=== PATIENT | female | born 1955 | race Caucasian/White ===

== ENCOUNTER → 2016-12-14 | Outpatient (CLI) | payer BC ==
--- NOTE | 2016-12-14 10:56 | MM ---
Reason for exam: follow-up at short interval from prior study. Last mammogram was performed 6 months ago. History: Patient is postmenopausal. Family history of premenopausal breast cancer in sister at age 36, breast cancer in paternal aunt at age 54, and breast cancer in maternal grandmother at age 60. Benign excisional biopsy of the left breast, 1981. Took estrogen for 21 years. Took progesterone for 21 years. Physical Findings: Nurse did not find any significant physical abnormalities on exam. MG Diagnostic Mammo w CAD [place] Bilateral CC and MLO view(s) were taken. Prior study comparison: June 04, 2016, bilateral MG 3d diag mammo w/cad [place]. November 06, 2014, bilateral MG screening mammo w CAD. The breast tissue is heterogeneously dense. This may lower the sensitivity of mammography. No suspicious calcifications are seen. There is chronic nodularity bilaterally. These results were verbally communicated with the patient and result sheet given to the patient on 12/14/16. ASSESSMENT: Incomplete: need additional imaging evaluation, BI-RAD 0 RECOMMENDATION: Ultrasound of both breasts. Manage patient on a clinical basis.
--- NOTE | 2016-12-14 10:57 | USB ---
Reason for exam: additional evaluation requested from abnormal screening. History: Patient is postmenopausal. Family history of premenopausal breast cancer in sister at age 36, breast cancer in paternal aunt at age 54, and breast cancer in maternal grandmother at age 60. Benign excisional biopsy of the left breast, 1981. Took estrogen for 21 years. Took progesterone for 21 years. US Breast BILAT Right breast ultrasound including all four quadrants, the retroareolar region and axilla demonstrates no cystic or solid lesion seen. Left breast ultrasound including all four quadrants, the retroareolar region and axilla demonstrates no cystic or solid lesion seen. These results were verbally communicated with the patient and result sheet given to the patient on 12/14/16. ASSESSMENT: Negative, BI-RAD 1 RECOMMENDATION: Routine screening mammogram of both breasts in 1 year.
== END ==
LOC: RADUSWWP 09:18
PROVIDERS: ATTEND Family Medicine
DX: R92.8 Other abnormal and inconclusive findings on diagnostic imaging of breast (principal)
CPT/HCPCS: 76641; G0204

== ENCOUNTER → 2017-02-09 | Outpatient (CLI) | payer BC ==
--- NOTE | 2017-02-09 17:32 | CT ---
EXAMINATION TYPE: CT angio chest DATE OF EXAM: 02/09/2017 5:24 PM COMPARISON: Chest CT October 17, 2014. HISTORY: Chest pressure with shortness of breath for 2-[address] DLP: 630 mGycm. Automated Exposure Control for Dose Reduction was Utilized. CONTRAST: CTA scan of the thorax is performed with IV Contrast, patient injected with 100 mL of Omnipaque 350, pulmonary embolism protocol. MIP Images are created on CT scanner and reviewed. FINDINGS: LUNGS: Central groundglass opacity is present bilaterally. No suspicious new parenchymal nodule or ma ss is clearly seen. There is stable 4 mm groundglass nodule laterally right midlung on axial image 76 subpleural level. No pleural effusion or pneumothorax is seen bilaterally. Tracheobronchial tree is patent. MEDIASTINUM: There is satisfactory enhancement of the pulmonary artery and its branches, there is no CT evidence for pulmonary embolism. There are no greater than 1 cm hilar or mediastinal lymph nodes. No cardiomegaly or pericardial effusion is seen. Mild to moderate left atrial dilatation is seen. There is moderate concentric left ventricular hypertrophy noted mild to moderate mixed plaque in the descending thoracic and upper abdominal aorta is noted. OTHER: Heterogeneously dense fibroglandular tissue scattered throughout both breasts is again seen. L iver is diffusely low dense consistent with fatty infiltration. Some mild multilevel spurring in the thoracic spine is seen. There are persistent multilevel hemivertebra with scoliotic curvature centere d in the upper to midthoracic spine. IMPRESSION: 1. No CT evidence for pulmonary embolism. 2. Perhaps mild central alveolar edema, consider fluid overload state. No suspicious focal consolidat ion or pneumonia.
== END | disposition home or self-care (01) ==
LOC: RADCTMAIN 16:56
PROVIDERS: ATTEND Internal Medicine Cardiovascular Disease
DX: R06.02 Shortness of breath (principal)
CPT/HCPCS: 71275; Q9967

== ENCOUNTER 2017-02-22 17:00 | Emergency (ER) | payer BC ==
[2017-02-22 17:29] VITALS: BP 183/74; PULSE 107; RESP 18; TEMP 97.8
[2017-02-22] MEDS ORDERED: ORPHENADRINE 30 MG/ML 2 ML VIAL IM STA (18:04)
[2017-02-22] MEDS ORDERED: MORPHINE SULFATE 4 MG/ML SYRINGE IM STA (18:04)
--- NOTE | 2017-02-22 18:09 | ED ---
Neck Injury/Pain HPI - General Chief Complaint: Neck Pain/Injury Stated Complaint: pain left arm Time Seen by Provider: 02/22/17 17:54 Source: patient, RN notes reviewed Mode of arrival: ambulatory Limitations: no limitations - History of Present Illness Initial Comments: Is a 61-year-old female presents emergency Department chief complaint muscle spasms left side of her neck, shoulder and arm region. She states that it's parents basilar last few days. She states that she did go the clinic and was told to increase her Flexeril to 3 times a day she has been tenderness with no relief. Patient EKG which was normal. Patient states she has no chest pain or shortness breath she states she just has severe pain around her left scapula. She states when she moves it causes excruciating pain or she lays down on her left shoulder. She states that she has no pain and rates into her arm. Patient denies any dizziness, blurred vision or any focal weakness. Patient states that is causing some headache because of pain is in the left side of her neck at the base of her skull. Patient states she has had problems like this in the past. She did try to get up with Dr. Elise's office but did not have an appointment until March 12. States that she took half her Hinkle last night with minimal relief. - Related Data Home Medications Medication Instructions Recorded Confirmed Aspirin 162 mg PO HS 06/24/15 02/22/17 Atorvastatin [Lipitor] 80 mg PO HS 06/24/15 02/22/17 Cyclobenzaprine [Flexeril] 10 mg PO BID PRN 06/24/15 02/22/17 Isosorbide Mononitrate ER [Imdur] 60 mg PO HS 06/24/15 02/22/17 Metoprolol Tartrate [Lopressor] 25 mg PO BID 06/24/15 02/22/17 Temazepam [Restoril] 30 mg PO HS 06/24/15 02/22/17 Ergocalciferol [Vitamin D2 50,000 unit PO TAVERAS 01/15/16 02/22/17 (DRISDOL)] Ibuprofen [Motrin] 400 mg PO Q6HR PRN 02/22/17 02/22/17 amLODIPine [Norvasc] 10 mg PO DAILY 02/22/17 02/22/17 Previous Rx's Medication Instructions Recorded Lisinopril [Zestril] 10 mg PO DAILY #30 tab 01/16/16 HYDROcodone/APAP 7.5-325MG [Hinkle 1 tab PO Q6HR PRN #20 tab 02/22/17 7.5-325] Orphenadrine [Norflex] 100 mg PO Q12H #14 tablet.er 02/22/17 Allergies Allergy/AdvReac Type Severity Reaction Status Date / Time acetaminophen [From Vicodin] Allergy Hallucinati Verified 02/22/17 17:57 ons diazepam [From Valium] Allergy Hallucinati Verified 02/22/17 17:57 ons erythromycin base Allergy Nausea Verified 02/22/17 17:57 hydrocodone bitartrate Allergy Hallucinati Verified 02/22/17 17:57 [From Vicodin] ons zolpidem tartrate Allergy Hallucinati Verified 02/22/17 17:57 [From Ambien] ons Review of Systems ROS Statement: Those systems with pertinent positive or pertinent negative responses have been documented in the HPI. ROS Other: All systems not noted in ROS Statement are negative. Past Medical History Past Medical History: Chest Pain / Angina, COPD, Hyperlipidemia, Hypertension, Myocardial Infarction ([place]), Osteoarthritis (OA) Additional Past Medical History / Comment(s): X2 PA'S LAST ONE IN 2014, OSTEOPOROSIS, PT STATED HAD THYROID STORM MANY YEARS AGO WAS TAKING MEDS THEND STOPPED THE MEDS ON HER OWN 12 YERAS AGO AND NO PROBLEM SINCE. 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 Smoking Status: Former smoker Past Alcohol Use History: None Reported Additional Past Alcohol Use History / Comment(s): PT STATED SHE SMOKED FOR 42 YEARS 1.5 PPD, QUIT -2015 Past Drug Use History: None Reported - Past Family History Father Family Medical History: Myocardial Infarction ([place]) Additional Family Medical History / Comment(s): PACEMAKER Mother Family Medical History: Congestive Heart Failure (CHF), Myocardial Infarction ( [place]) Sister(s) Family Medical History: Coronary Artery Disease (CAD) Additional Family Medical History / Comment(s): HAD CABG AT AGE 60 Brother(s) Family Medical History: Coronary Artery Disease (CAD), Myocardial Infarction ([place] ) Additional Family Medical History / Comment(s): 1 BROTHER HAD 3 PA'S /PACEMKAER AT AGE 29, 1 BROTHER HAD CABG AT AGE 66 AND 2 BROTHERS IN THEIR EARLY 50'S FROM PA'S General Exam General appearance: alert, in no apparent distress Head exam: Present: atraumatic, normocephalic, normal inspection Eye exam: Present: normal appearance, PERRL, EOMI. Absent: scleral icterus, conjunctival injection, periorbital swelling ENT exam: Present: normal exam, normal oropharynx, mucous membranes moist, TM's normal bilaterally Neck exam: Present: tenderness (Moderate tenderness of the left trapezius scapular region and the left paraspinal at testing side of the left trapezius), full ROM. Absent: meningismus, lymphadenopathy Respiratory exam: Present: normal lung sounds bilaterally. Absent: respiratory distress, wheezes, rales, rhonchi, stridor Cardiovascular Exam: Present: regular rate, normal rhythm, normal heart sounds. Absent: systolic murmur, diastolic murmur, rubs, gallop, clicks Neurological exam: Present: alert, oriented X3, CN II-XII intact, reflexes normal. Absent: motor sensory deficit Skin exam: Present: warm, dry, intact, normal color. Absent: rash Course Vital Signs 02/22/17 17:25 Temperature 97.8 F Pulse Rate 107 H Respiratory 18 Rate Blood Pressure 183/74 O2 Sat by Pulse 95 Oximetry Medical Decision Making - Medical Decision Making 61-year-old female presented emergency department for left shoulder and neck region pain. Patient has obvious muscle spasms and tenderness with palpation. This is muscle skeletal nature. Patient is currently taking Flexeril no relief. Patient we given pain medication, change in her muscle relaxants Norflex. Return parameters were discussed. Disposition Clinical Impression: Trapezius muscle spasm Disposition: HOME SELF-CARE Condition: Stable Instructions: Muscle Spasm (ED) Additional Instructions: Please return to the Emergency Department if symptoms worsen or any other concerns. Prescriptions: HYDROcodone/APAP 7.5-325MG [Hinkle 7.5-325] 1 tab PO Q6HR PRN #20 tab PRN Reason: Pain Orphenadrine [Norflex] 100 mg PO Q12H #14 tablet.er Time of Disposition: 18:08
== END 2017-02-22 18:32 | disposition home or self-care (01) ==
LOC: EC 17:00
DX: M62.838 Other muscle spasm (principal); M19.90 Unspecified osteoarthritis, unspecified site; E78.5 Hyperlipidemia, unspecified; I10 Essential (primary) hypertension; Z88.1 Allergy status to other antibiotic agents; Z88.5 Allergy status to narcotic agent; Z88.8 Allergy status to other drugs, medicaments and biological substances; Z87.891 Personal history of nicotine dependence; Z79.82 Long term (current) use of aspirin; Z79.899 Other long term (current) drug therapy
CPT/HCPCS: 99283; 96372 ×2; J2270; J2360

== ENCOUNTER → 2019-03-01 | Outpatient (CLI) | payer OTHER ==
--- NOTE | 2019-03-01 08:06 | US ---
EXAMINATION TYPE: US venous doppler duplex LE LT DATE OF EXAM: 03/01/2019 7:34 AM COMPARISON: NONE CLINICAL HISTORY: R60.0 edema of L lower extremity. Pain and edema left foot for 1 week SIDE PERFORMED: left TECHNIQUE: The lower extremity deep venous system is examined utilizing real time linear array sonog markel with graded compression, doppler sonography and color-flow sonography. VESSELS IMAGED: External Iliac Vein (EIV) Common Femoral Vein Deep Femoral Vein Greater Saphenous Vein * Femoral Vein Popliteal Vein Small Saphenous Vein * Proximal Calf Veins (* superficial vessels) There is normal flow, compressibility, vascular waveforms. Left Leg: No evidence of DVT as visualized IMPRESSION:
--- NOTE | 2019-03-01 08:19 | CT ---
EXAMINATION TYPE: CT angio chest DATE OF EXAM: 03/01/2019 COMPARISON: CT angiogram chest dated 02/09/2017 HISTORY: Abnormal diffusion capacity. SOB CT DLP: 650 mGycm. Automated Exposure Control for Dose Reduction was Utilized. CONTRAST: CTA scan of the thorax is performed without and with IV Contrast, patient injected with 100 ml mL of Isovue 370, pulmonary embolism protocol. MIP Images are created on CT scanner and reviewed. FINDINGS: LUNGS: There are few scattered thin-walled cysts/blebs. Calcified right apical anterior pulmonary gra nuloma is evident. There is a stable 3 mm pulmonary nodule in the lateral right lower lobe along the interlobar fissure on image 97. Stable intrafissural lymph node is seen on the left. No focal consoli dation. Minimal dependent subsegmental atelectasis is present. The previously seen alveolar edema has resolved in the interim. There is no pleural effusion or pneumothorax seen. The tracheobronchial tr ee is patent. MEDIASTINUM: There is satisfactory enhancement of the pulmonary artery and its branches, there is no CT evidence for pulmonary embolism. There are no greater than 1 cm hilar or mediastinal lymph nodes. Heart is mildly enlarged. Left ventricular hypertrophy is again noted. Moderate atherosclerosis of t he thoracic aorta is seen. No pericardial effusion. Mild coronary calcifications are seen. OTHER: There is a small hiatal hernia. There is a 1.4 cm low-density left adrenal gland nodule stable from 2017. Average Hounsfield unit of 5 meets criteria for a benign adenoma. A 1 cm hepatic cyst is incidentally seen on image 126. There is an old fracture deformity of the lateral margin of rib 9 on the right as well as more subtly of rib 8 and of the posterior lateral margin of rib 7 on the right. Minimal multilevel degenerative changes of the thoracic spine IMPRESSION: 1. No evidence of pulmonary embolus. 2. Resolution of the previously seen pulmonary edema with no current evidence of fluid overload howev er the heart is mildly enlarged and there is redemonstration of left ventricular hypertrophy. 3. Stable right lower lobe subcentimeter pulmonary nodule, presumably benign. 4. Small hiatal hernia, mild coronary artery calcifications, old healed right rib fractures, and lipi d rich left adrenal adenoma are incidentally seen.
== END ==
LOC: RADCTMAIN 06:46
PROVIDERS: ATTEND Internal Medicine
DX: R60.0 Localized edema (principal); R91.1 Solitary pulmonary nodule; I25.10 Atherosclerotic heart disease of native coronary artery without angina pectoris
CPT/HCPCS: 93971; 71275; Q9967

== ENCOUNTER → 2020-05-02 | Outpatient (CLI) | payer OTHER ==
[2020-05-02 17:17] LABS: Chol/HDL Ratio 4.83; LDL Cholesterol,Calculated 110.8 mg/dL (0.0-131.0); VLDL Calculation 42.2 mg/dL (5.00-40.00)
== END | disposition home or self-care (01) ==
LOC: LABWHC1 09:26
PROVIDERS: ATTEND Internal Medicine Cardiovascular Disease
DX: E78.2 Mixed hyperlipidemia (principal)
CPT/HCPCS: 36415; 80061; 84450; 84460

== ENCOUNTER → 2021-02-12 | Outpatient (CLI) | payer OTHER ==
--- NOTE | 2021-02-13 12:35 | MM ---
Reason for exam: screening (asymptomatic). Last mammogram was performed 4 years and 2 months ago. History: Patient is postmenopausal. Family history of premenopausal breast cancer in sister at age 36, breast cancer in paternal aunt at age 54, and breast cancer in maternal grandmother at age 60. Benign excisional biopsy of the left breast, 1981. Took estrogen for 21 years. Took progesterone for 21 years. Physical Findings: A clinical breast exam by your physician is recommended on an annual basis and results should be correlated with mammographic findings. MG Screening Mammo w CAD Bilateral CC and MLO view(s) were taken. Prior study comparison: December 14, 2016, bilateral MG diagnostic mammo w CAD [place]. June 04, 2016, bilateral MG 3d diag mammo w/cad [place]. The breast tissue is heterogeneously dense. This may lower the sensitivity of mammography. Nodule upper outer right breast zone B. This finding is changed when compared with previous exams. ASSESSMENT: Incomplete: need additional imaging evaluation, BI-RAD 0 RECOMMENDATION: Special view mammogram and ultrasound of the right breast. [facility] will attempt to contact patient to return for supplemental views and ultrasound.
== END | disposition home or self-care (01) ==
LOC: RADMAMWWP 09:35
PROVIDERS: ATTEND Internal Medicine
DX: Z12.31 Encounter for screening mammogram for malignant neoplasm of breast (principal); Z78.0 Asymptomatic menopausal state; Z80.3 Family history of malignant neoplasm of breast
CPT/HCPCS: 77067

== ENCOUNTER → 2021-02-28 | Outpatient (CLI) | payer OTHER ==
--- NOTE | 2021-03-03 12:08 | MM ---
Reason for exam: additional evaluation requested from abnormal screening. Last mammogram was performed 1 month ago. History: Patient is postmenopausal. Family history of premenopausal breast cancer in sister at age 36, breast cancer in paternal aunt at age 54, breast cancer in paternal aunt at age 58, and breast cancer in maternal grandmother at age 60. Benign excisional biopsy of the left breast, 1981. Took estrogen for 21 years. Took progesterone for 21 years. Physical Findings: Nurse did not find any significant physical abnormalities on exam. MG 3D Work Up W/Cad RT Spot compression CC, spot compression MLO, and ML view(s) were taken of the right breast. Prior study comparison: February 12, 2021, bilateral MG screening mammo w CAD. December 14, 2016, bilateral MG diagnostic mammo w CAD [place]. The breast tissue is heterogeneously dense. This may lower the sensitivity of mammography. 8 x 4mm persistent mass at 10 o'clock zone B, ultrasound recommended. These results were verbally communicated with the patient and result sheet given to the patient on 02/28/21. ASSESSMENT: Incomplete: need additional imaging evaluation, BI-RAD 0 RECOMMENDATION: Ultrasound of the right breast.
--- NOTE | 2021-03-03 12:10 | USB ---
Reason for exam: additional evaluation requested from abnormal screening. History: Patient is postmenopausal. Family history of premenopausal breast cancer in sister at age 36, breast cancer in paternal aunt at age 54, breast cancer in paternal aunt at age 58, and breast cancer in maternal grandmother at age 60. Benign excisional biopsy of the left breast, 1981. Took estrogen for 21 years. Took progesterone for 21 years. US Breast Workup Limited RT Right limited breast ultrasound including focal area of concern, retroareolar and axilla demonstrates no cystic or solid lesion seen. No sonographic finding. Persistent nodule is stable, due to termite helper stability, return to screening mammogram. These results were verbally communicated with the patient and result sheet given to the patient on 02/28/21. ASSESSMENT: Benign, BI-RAD 2 RECOMMENDATION: Return to routine screening mammogram schedule for both breasts.
== END | disposition home or self-care (01) ==
LOC: RADMAMWWP 12:45
PROVIDERS: ATTEND Internal Medicine
DX: R92.2 Inconclusive mammogram (principal); N63.11 Unspecified lump in the right breast, upper outer quadrant; Z80.3 Family history of malignant neoplasm of breast; Z78.0 Asymptomatic menopausal state
CPT/HCPCS: 77065; 76642; G0279; 77061

== ENCOUNTER 2021-09-29 17:45 | Emergency (ER) | payer OTHER ==
[2021-09-29 20:49] VITALS: TEMP 99
--- NOTE | 2021-09-29 20:50 | ED ---
Chest Pain HPI <Shani Cheney - Last Filed: 09/29/21 20:48> <Kade Alvarado - Last Filed: 09/29/21 23:48> - General Stated Complaint: abd pain, SOB - History of Present Illness Initial Comments: Cathryn is a 66 -year-old female with extensive past medical history who presents to the emergency department today for evaluation of left-sided rib pain. Patient reports the pain that developed yesterday, she has pain with any deep breaths or movement. She states she's had pain similar to this in the past multiple times and has been diagnosed with costochondritis. Patient took 400mg advil around 3pm today without improvement. She has no fevers chills or cough. She is vaccinated for COVID-19. (Shani Cheney) - Related Data Home Medications Medication Instructions Recorded Confirmed Atorvastatin [Lipitor] 80 mg PO DAILY 06/24/15 09/29/21 Metoprolol Tartrate [Lopressor] 25 mg PO BID 06/24/15 09/29/21 Ascorbic Acid [Vitamin C] 500 mg PO DAILY 09/29/21 09/29/21 Cholecalciferol (Vitamin D3) 125 mcg PO DAILY 09/29/21 09/29/21 [Vitamin D3 (125 MCG = 5,000 IU)] Furosemide [Lasix] 20 mg PO DAILY 09/29/21 09/29/21 Isosorbide Mononitrate ER [Imdur] 30 mg PO DAILY 09/29/21 09/29/21 Spironolactone [Aldactone] 25 mg PO DAILY 09/29/21 09/29/21 allopurinoL [Zyloprim] 100 mg PO DAILY 09/29/21 09/29/21 traZODone HCL [TraZODone HCl] 50 mg PO HS 09/29/21 09/29/21 Previous Rx's Medication Instructions Recorded lisinopriL [Zestril] 10 mg PO DAILY #30 tab 01/16/16 Naproxen [EC-Naproxen] 500 mg PO BID #20 tab 09/29/21 Allergies Allergy/AdvReac Type Severity Reaction Status Date / Time diazepam [From Valium] Allergy Hallucinati Verified 09/29/21 23:10 ons erythromycin base Allergy Nausea Verified 09/29/21 23:10 hydrocodone bitartrate Allergy Hallucinati Verified 09/29/21 23:10 [From Vicodin] ons zolpidem tartrate Allergy Hallucinati Verified 09/29/21 23:10 [From Ambien] ons Review of Systems ROS Other: All systems not noted in ROS Statement are negative. <CheneyLibia ambrizjose Causey - Last Filed: 09/29/21 20:48> ROS Other: All systems not noted in ROS Statement are negative. <Kade Alvarado - Last Filed: 09/29/21 23:48> ROS Statement: Those systems with pertinent positive or pertinent negative responses have been documented in the HPI. Past Medical History Past Medical History: Chest Pain / Angina, COPD, Hyperlipidemia, Hypertension, Myocardial Infarction ([place]), Osteoarthritis (OA) Additional Past Medical History / Comment(s): X2 TN'S LAST ONE IN 2014,OSTEOPOROSIS, PT STATED HAD THYROID STORM MANY YEARS AGO WAS TAKING MEDS THEND STOPPED THE MEDS ON HER OWN 12 YERAS AGO AND NO PROBLEM SINCE. 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 Past Alcohol Use History: None Reported Additional Past Alcohol Use History / Comment(s): PT STATED SHE SMOKED FOR 42 YEARS 1.5 PPD, QUIT -2015 Past Drug Use History: None Reported - Past Family History Father Family Medical History: Myocardial Infarction ([place]) Additional Family Medical History / Comment(s): PACEMAKER Mother Family Medical History: Congestive Heart Failure (CHF), Myocardial Infarction ([place]) Sister(s) Family Medical History: Coronary Artery Disease (CAD) Additional Family Medical History / Comment(s): HAD CABG AT AGE 60 Brother(s) Family Medical History: Coronary Artery Disease (CAD), Myocardial Infarction ([place]) Additional Family Medical History / Comment(s): 1 BROTHER HAD 3 TN'S /PACEMKAER AT AGE 29, 1 BROTHER HAD CABG AT AGE 66 AND 2 BROTHERS IN THEIR EARLY 50'S FROM TN'S <Shani Cheney - Last Filed: 09/29/21 20:48> General Exam Limitations: no limitations General appearance: alert, in no apparent distress Head exam: Present: atraumatic, normocephalic Eye exam: Present: normal appearance Neck exam: Present: normal inspection Respiratory exam: Present: normal lung sounds bilaterally, chest wall tenderness. Absent: respiratory distress, wheezes, rales, rhonchi, stridor Cardiovascular Exam: Present: regular rate, normal rhythm, normal heart sounds. Absent: systolic murmur, diastolic murmur, rubs, gallop GI/Abdominal exam: Present: soft. Absent: distended, tenderness, guarding, rebound, rigid, mass Extremities exam: Present: normal inspection, normal capillary refill. Absent: pedal edema, calf tenderness Back exam: Present: normal inspection. Absent: CVA tenderness (R), CVA tenderness (L) Neurological exam: Present: alert Skin exam: Present: warm, dry, intact, normal color. Absent: rash <Kade Alvarado - Last Filed: 09/29/21 23:48> Course Vital Signs 09/29/21 20:47 Temperature 99.0 F Pulse Rate 76 Respiratory 20 Rate Blood Pressure 141/70 O2 Sat by Pulse 96 Oximetry Chest Pain [facility] <Kade Alvarado - Last Filed: 09/29/21 23:48> - [facility] Patient is 66-year-old woman with pleuritic left chest pain. Discussed the findings and recommendation of repeat chest x-ray. The patient states she has h ad this multiple times previously and always resolved with anti-inflammatories. She states she is feeling better following medication here and would like to go home. Discussed appropriate further care and follow-up. (Kade Alvarado) Disposition <Shani Cheney - Last Filed: 09/29/21 20:48> Is patient prescribed a controlled substance at d/c from ED?: No <Kade Alvarado - Last Filed: 09/29/21 23:48> Clinical Impression: Pleuritis Disposition: HOME SELF-CARE Condition: Good Instructions (If sedation given, give patient instructions): Pleurisy (DC) Additional Instructions: As we discussed, follow-up in approximately 2 weeks for repeat x-ray to ensure that it appears normal. If there is any problem return to the emergency department. Prescriptions: Naproxen [EC-Naproxen] 500 mg PO BID #20 tab Referrals: Lynn Singleton MD [Primary Care Provider] - 1-2 days
--- NOTE | 2021-09-29 21:42 | XR ---
EXAMINATION TYPE: XR chest 2V DATE OF EXAM: 09/29/2021 COMPARISON: 01/15/2016 HISTORY: Left sided chest pain TECHNIQUE: 2 views FINDINGS: There is no heart failure nor confluent pneumonic infiltrate. Costophrenic angles are fairl y clear. There is no pleural effusion or pneumothorax. I see no evidence of a rib fracture. There is no evidence of pneumothorax. There is small linear density left lung base. IMPRESSION: There is minimal pleural reaction or atelectasis left lung base similar to old exam. No h eart failure. No obvious rib fracture.
[2021-09-29] MEDS ORDERED: MORPHINE SULFATE 4 MG/ML SYRINGE IVP STA (22:49)
[2021-09-29] MEDS ORDERED: KETOROLAC 15 MG/ML 1 ML VIAL IVP STA (22:49)
[2021-09-29 22:59] LABS: Basophils # (A) 0.1 k/uL (0-0.2); Basophils % (A) 0 %; Eosinophils # (A) 0.2 k/uL (0-0.7); Eosinophils % (A) 1 %; HCT 38.7 % (34.0-46.0); HGB 12.4 gm/dL (11.4-16.0); Lymphocytes # (A) 1.9 k/uL (1.0-4.8); Lymphocytes % (A) 14 %; MCH 29.2 pg (25.0-35.0); MCV 91.3 fL (80.0-100.0); Mean Platelet Volume 8.9; Monocytes % (A) 8 %; Neutrophils # (A) 9.9 k/uL (1.3-7.7); Neutrophils % (A) 75 %; Platelet Count 258 k/uL (150-450); RBC 4.24 m/uL (3.80-5.40); RDW 13.7 % (11.5-15.5); WBC 13.1 k/uL (3.8-10.6)
[2021-09-29 23:11] LABS: African American GFR (CKD) >90 (>60 ml/min/1.73 sqM); Anion Gap 10 mmol/L; Blood Urea Nitrogen 18 mg/dL (7-17); Carbon Dioxide 26 mmol/L (22-30); Chloride 101 mmol/L (98-107); Glucose 112 mg/dL (74-99); Non-African American GFR(CKD) >90 (>60 ml/min/1.73 sqM); Potassium 4.3 mmol/L (3.5-5.1); Sodium 137 mmol/L (137-145)
[2021-09-30 00:18] VITALS: BP 142/88; PULSE 84; RESP 16
== END 2021-09-30 00:23 | disposition home or self-care (01) ==
LOC: EC 17:45
DX: R09.1 Pleurisy (principal); J44.9 Chronic obstructive pulmonary disease, unspecified; E78.5 Hyperlipidemia, unspecified; I10 Essential (primary) hypertension; I25.2 Old myocardial infarction; M19.90 Unspecified osteoarthritis, unspecified site; Z79.899 Other long term (current) drug therapy
CPT/HCPCS: 36415; 85379; 80048; 84484; 85025; 71046; 99284; 96374; 96375; J2270; J1885; 93005

== ENCOUNTER → 2022-01-21 | Outpatient (CLI) | payer OTHER ==
--- NOTE | 2022-01-21 12:29 | CT ---
EXAMINATION TYPE: CT foot LT wo con DATE OF EXAM: 01/21/2022 COMPARISON: None available. HISTORY: DISPLACED INTRAARTICULAR FRACTURE OF LEFT CT DLP: 232.5 mGycm Automated exposure control for dose reduction was used. TECHNIQUE: Multiplanar CT scan of the left foot without IV contrast administration, 3-D reconstructio n images were generated on an independent workstation and reviewed. FINDINGS: Osteopenia. Comminuted mildly displaced fracture of the calcaneus extending from its superior to infe rior aspect as well as from its medial to lateral aspects with a gap up to 5.7 mm at the fracture sit e. There is extension of fracture into the anterior aspect of the posterior subtalar joint. Degenerative changes of the calcaneocuboid articulation with subchondral cyst formation. Subchondral cyst formation is also seen at the medial aspect of the talar dome with mild degenerative changes of the ankle joint and tiny atelectasis. Few millimetric bone fragments are seen at the tip of the medial malleolus as well as the tip of the lateral malleolus which could represent sequela of previous avulsion fractures. No other definite acu te fracture line identified. Small ankle joint fluid. Tiny posterior calcaneal enthesophyte at the in sertion of the Achilles tendon. IMPRESSION: Comminuted mildly displaced fracture of the calcaneus extending to the posterior subtalar joint as de scribed above. Osteopenia. Other findings as detailed above.
== END | disposition home or self-care (01) ==
LOC: RADCTMAIN 08:32
PROVIDERS: ATTEND Podiatrist
DX: S92.062A Displaced intraarticular fracture of left calcaneus, initial encounter for closed fracture (principal); M85.872 Other specified disorders of bone density and structure, left ankle and foot; X58.XXXA Exposure to other specified factors, initial encounter

== ENCOUNTER → 2022-03-06 | Outpatient (CLI) | payer OTHER ==
--- NOTE | 2022-03-09 08:28 | BD ---
EXAMINATION TYPE: Axial Bone Density DATE OF EXAM: 03/06/2022 COMPARISON: NONE CLINICAL HISTORY: 66 years year old Female. ICD-10 CODE: M89.9 DISORDER OF BONE Height: 64.5 Weight: 206.8 FRAX RISK QUESTIONS: Alcohol (3 or more units per day): NO Family History (Parent hip fracture): NO Glucocorticoids (More than 3mos): NO History of Fracture in Adulthood: YES Secondary Osteoporosis: 1. Type 1 Diabetes: NO 2. Hyperthyroidism: NO 3. Menopause before 45: YES 4. Malnutrition: NO 5. Chronic liver disease: NO Rheumatoid Arthritis: NO Current Tobacco Use: NO RISK FACTORS HISTORY OF: Hip Fracture (Right/Left): no Spine Fracture: no History of Wrist Fracture: NO Surgery to Spine/Hip(right/left)/Wrist (right/left): NO Family History of Osteoporosis: NO Active: YES Diet low in dairy products/other sources of calcium: YES Postmenopausal woman: YES Take estrogen and/or progesterone medications: NO Lost more than 2 inches in height since high school: YES Frequent falls: NO Poor Health: NO Hyperparathyroidism: NO Adrenal Insufficiency: NO MEDICATIONS: Prednisone or other steroids: NO Thyroid Medications: NO Osteoporosis Medications: NO Additional Medications: ISOSORBIDE, LISINOPRIL, METOPROLOL, VIT D, Additional History: EXAM MEASUREMENTS: Bone mineral densitometry was performed using the MIGSIF System. Bone mineral density as measured about the Lumbar spine is: ----- L1-L4(G/cm2): 0.984 T Score Values are as follows: ----- L1: -1.5 ----- L2: -2.4 ----- L3: -1.4 ----- L4: -1.3 ----- L1-L4: -1.6 Bone mineral density about the R hip (g/cm2): 0.966 Bone mineral density about the L hip (g/cm2): 0.922 T Score values are as follows: -----R Neck: -0.5 -----L Neck: -0.8 -----R Total: -0.2 -----L Total: -0.7 Bone mineral density has: DECREASED 1.5 % since study of: 03/12/2015 FRAX%s: The graph provided illustrates a 11.8% chance for a major osteoporotic fx and a 0.7% chance f or the hips probability for fx in 10 years time. IMPRESSION: Osteopenia (T Score between -2.5 and -1). There is slightly increased risk of fracture and the patient may be considered for treatment. Re-Screen 2-5 years. NOTE: T-SCORE=SD OF THE YOUNG ADULT MEAN.
== END | disposition home or self-care (01) ==
LOC: RADBDWWP 07:48
PROVIDERS: ATTEND Internal Medicine
DX: M85.89 Other specified disorders of bone density and structure, multiple sites (principal); Z78.0 Asymptomatic menopausal state
CPT/HCPCS: 77080

== ENCOUNTER → 2022-03-24 | Outpatient (CLI) | payer OTHER ==
--- NOTE | 2022-03-25 10:16 | MM ---
Reason for Exam: Screening (asymptomatic). Last mammogram was performed 1 year(s) and 1 month(s) ago. Patient History: Menarche at age 14. First Full-Term at age 23. Left ovary removed at age 25. Right ovary removed at age 25. Hysterectomy at age 24. Postmenopausal. Estrogen for 21 years until age 48. Progesterone for 21 years until age 48. 1982, Benign Excisional Biopsy on the left side. Maternal grandmother had breast cancer, age 60. Paternal aunt had breast cancer, age 54. Paternal aunt had breast cancer, age 58. Sister had breast cancer, age 36. Risk Values: Angelika 5 year model risk: 3.6%. NCI Lifetime model risk: 14.1%. Prior Study Comparison: 12/14/2016 Bilateral Diagnostic Mammogram, [facility]. 02/12/2021 Bilateral Screening Mammogram, [facility]. 02/28/2021 Right Diagnostic Mammogram, [facility]. Tissue Density: There are scattered fibroglandular densities. Findings: Analyzed By CAD. There is no suspicious group of microcalcifications or new suspicious mass in either breast. Overall Assessment: Negative, BI-RAD 1 Management: Screening Mammogram of both breasts in 1 year. A clinical breast exam by your physician is recommended on an annual basis and results should be correlated with mammographic findings. Electronically signed and approved by: Fredy Mcclellan M.D.
== END | disposition home or self-care (01) ==
LOC: RADMAMWWP 07:38
PROVIDERS: ATTEND Internal Medicine
DX: Z12.31 Encounter for screening mammogram for malignant neoplasm of breast (principal); Z78.0 Asymptomatic menopausal state; Z80.3 Family history of malignant neoplasm of breast
CPT/HCPCS: 77067

== ENCOUNTER 2023-01-25 10:51 | Day surgery (SDC) | payer MEDICARE, OTHER ==
[2023-01-20 12:40] VITALS: BMI 36.2
[~2023-01-25 10:51] MED LIST: LACTATED RINGERS 1,000 ML IV SCH
[2023-01-25] MEDS ORDERED: ONDANSETRON 4 MG/2 ML VIAL ONE (11:19)
[2023-01-25 11:20] LABS: Glucose,Whole Blood 96 mg/dL (70-110)
[2023-01-25] MEDS ORDERED: DEXAMETHASONE SOD PHOSPHATE 4 MG/ML 1 ML VIAL IVP ONE (11:22)
[2023-01-25] MEDS ORDERED: ONDANSETRON 4 MG/2 ML VIAL IVP ONE (11:22)
[2023-01-25 11:26] VITALS: TEMP 97.1
[2023-01-25] MEDS ORDERED: PROPOFOL 10 MG/ML 20 ML VIAL IV ONE (12:10)
--- NOTE | 2023-01-25 12:28 | P.OP ---
Date of Procedure: 01/25/23 Preoperative Diagnosis: Screening colonoscopy Postoperative Diagnosis: Diverticulosis Internal and external hemorrhoids Procedure(s) Performed: Screening colonoscopy Anesthesia: MAC Surgeon: Ye Hobson Pathology: none sent Condition: stable Disposition: PACU Description of Procedure: The patient's placed on the endoscopy table in the lateral position. She received IV sedation. Digital rectal exam was performed. This revealed internal and external hemorrhoids. Flexible colonoscope was then placed patient anus and passed throughout the entire colon. The ileocecal valve was visually is. The cecum, ascending and transverse colon appeared normal. The descending and sigmoid colons examined. There was extensive diverticular changes and sigmoid colon. Scope was then brought back the rectum this appeared normal. Scope withdrawn for patient.
[2023-01-25 12:29] VITALS: RESP 16
[2023-01-25 12:47] VITALS: BP 121/62; PULSE 59
== END 2023-01-25 13:12 | disposition home or self-care (01) ==
LOC: ORWHC2ENDO 10:51
PROVIDERS: ATTEND Surgery
DX: Z12.11 Encounter for screening for malignant neoplasm of colon (principal); K57.30 Diverticulosis of large intestine without perforation or abscess without bleeding; K64.8 Other hemorrhoids; K64.4 Residual hemorrhoidal skin tags; Z88.1 Allergy status to other antibiotic agents; Z88.5 Allergy status to narcotic agent; Z88.8 Allergy status to other drugs, medicaments and biological substances; I10 Essential (primary) hypertension; E78.5 Hyperlipidemia, unspecified; I25.2 Old myocardial infarction; I25.10 Atherosclerotic heart disease of native coronary artery without angina pectoris; J44.9 Chronic obstructive pulmonary disease, unspecified; E03.9 Hypothyroidism, unspecified; E11.9 Type 2 diabetes mellitus without complications; M19.90 Unspecified osteoarthritis, unspecified site; Z79.890 Hormone replacement therapy; Z79.899 Other long term (current) drug therapy; Z79.82 Long term (current) use of aspirin
CPT/HCPCS: J1100; J2405; J2704; G0121

== ENCOUNTER → 2024-06-02 | Outpatient (CLI) | payer MEDICARE, OTHER ==
--- NOTE | 2024-06-19 11:05 | MM ---
Reason for Exam: Screening (asymptomatic). Last mammogram was performed 2 year(s) and 2 month(s) ago. Patient History: Menarche at age 14. First Full-Term at age 23. Left ovary removed at age 25. Right ovary removed at age 25. Hysterectomy at age 24. Postmenopausal. Estrogen for 21 years until age 48. Progesterone for 21 years until age 48. 1982, Benign Excisional Biopsy on the left side. Maternal grandmother had breast cancer, age 60. Paternal aunt had breast cancer, age 54. Paternal aunt had breast cancer, age 58. Sister had breast cancer, age 36. Risk Values: Angelika 5 year model risk: 3.8%. NCI Lifetime model risk: 13.2%. Prior Study Comparison: 02/12/2021 Bilateral Screening Mammogram, [facility]. 02/28/2021 Right Diagnostic Mammogram, [facility]. 03/24/2022 Bilateral MG screening mammo w CAD, [facility]. Tissue Density: The breasts are heterogeneously dense, which may obscure small masses. Findings: Analyzed By CAD. There is no suspicious group of microcalcifications or new suspicious mass in either breast. Overall Assessment: Benign, BI-RAD 2 Management: Screening Mammogram of both breasts in 1 year. . Patient should continue monthly self-breast exams. A clinical breast exam by your physician is recommended on an annual basis. This exam should not preclude additional follow-up of suspicious palpable abnormalities. Note on Angelika scores and lifetime risk: 1. A Angelika score greater than 3% is considered moderate risk. If this is the case, consider specialist referral to assess eligibility for a risk reducing agent. 2. If overall lifetime risk for the development of breast cancer is 20% or higher, the patient may qualify for future screening with alternating mammogram and breast MRI. Electronically signed and approved by: Shade Navas M.D. Radiologis
== END | disposition home or self-care (01) ==
LOC: RADMAMWWP 10:15
PROVIDERS: ATTEND Internal Medicine Geriatric Medicine
DX: Z12.31 Encounter for screening mammogram for malignant neoplasm of breast (principal); Z78.0 Asymptomatic menopausal state; Z80.3 Family history of malignant neoplasm of breast; R92.333 Mammographic heterogeneous density, bilateral breasts
CPT/HCPCS: 77063; 77067

== ENCOUNTER → 2024-08-03 | Outpatient (CLI) | payer MEDICARE, OTHER ==
[2024-08-03 09:47] VITALS: BP 128/73; PULSE 74; RESP 16
--- NOTE | 2024-08-03 14:57 | P.PAINPG ---
PQRS Measure Charge Sheet Comment: HISTORY OF PRESENT ILLNESS: A 69 yr old female as a referral from Dr Alfaro presents today w severe and chronic neck pain since secondary to radiculopathy, spondylosis and facet arthropathy without myelopathy for evaluation. Pt states pain level is provoked at 9 /10 in intensity, constant, localized in the lower cervical spine, predominantly axial, sharp in character w occasional shooting pain towards the BUEs. Pain is provoked by hyperextension. Pain is alleviated by PT x 6 wks which ended in Jul 2024, physician guided home stretches daily since May 2024, medications (Ibu), heat, manual massage, repositioning and rest . PMH: OA, Angina, COPD, NIDDM II, Hyperlipidemia, HTN, MN (2015), Hypothyroidism, OP PSH: Back Surgery x3, Heart Catheterization, Hysterectomy, L Knee Arthroscopy, Rectoceloe/ Cystocele Repair, Hx of 13 Rib Fractures SH: Former tobacco user, No ETOH abuse, No illicit drug use FH: Fa- MN. Mo- CHF, MN. Sis- CAD. Bro- CAD, MN. All: See list Meds: See list REVIEW OF ORGAN SYSTEMS: CONSTITUTIONAL: No fevers or chills. No recent weight loss. NEUROLOGICAL: + numbness and tingling along the distal extremities. No seizure disorders or headaches. MUSCULOSKELETAL: + pain PSYCHIATRIC: Denies current depression or suicidal thoughts. Physical Examinations : Constitutional : Cooperative , not in acute distress . Neurologic : Cranial nerve II to XII intact. No focal neurological deficits. Psychiatric : alert & oriented x 3. Matching mood & appropriate affect. Judgment & insight intact. Musculoskeletal : Cervical Spine Motor strength in the deltoid and biceps: Normal right side. Normal Left side Motor strength biceps and the wrist extensors: Normal right side . Normal left side Motor strength in the triceps muscle: Normal right side. Normal left side Deep tendon reflexes: Normal at the biceps. Normal at Brachioradialis. Normal at triceps Vertebral body tenderness to deep palpation over C6 Cervical facet loading test: positive bilaterally Spurling test: positive L > R C6-C7 Neck distraction test: positive bilaterally Shahab sign: positive bilaterally Lumbar spine Motor strength lower extremities ,thigh and legs 5/5 Right side , 5/5 Left side Deep tendon reflexes : Normal Knee Jerk. Normal Ankle Jerk Vertebral body tenderness over Poole Test positive Lumbar facet Loading Test: positive Right / positive Left Range of motion of the lumbar spine Flexion 30 degrees, extension 10 degrees Straight Leg Raise test: Left/ Right positive at degrees Radha test: positive right / positive left. Severe tenderness over the Sacroiliac joint on the Right / Left sides Gaenslen test: positive bilaterally Seated flexion test: positive bilaterally. Sacral spine : Severe tenderness over the Sacroiliac joint: right side / left side Range of motion: Flexion of the lumbar spine <60 degrees Range of motion: Extension of the lum bar spine <20 degrees Gaenslen's Test positive Radha test: positive right side / left side Thigh Thrust Test Sacral Thrust Test Imaging: MRI non contrast cervical spine from 06/07/24 reviewed Assessment/ Plan : Possible congenital C7-T1 fusion, L C6-C7 foraminal stenosis Recommendation of C6-C7 #1. Risks, benefits of procedure discussed and patient verbalized understanding. Admits to anti- coagulant use or medical history of diabetes. Protocol for discontinuation/ continuation of medications michelle procedure discussed. All questions answered. I have spent greater than 30 minutes on patient care today. Dr Xiao was available by phone for the evaluation of this patient. The time was used to review the medical records including relevant urine studies and Prescription history (MAPs), review of the available imaging, evaluation and examination of the patient, coordination of care with the medical staff and if applicable referring physicians, as well as creation of the medical record PQRS Narrative: Smoking Status Former smoker Home Medications: Ambulatory Orders Atorvastatin [Lipitor] 80 mg PO HS 06/24/15 Metoprolol Tartrate [Lopressor] 25 mg PO BID 06/24/15 Ascorbic Acid [Vitamin C] 500 mg PO DAILY 09/29/21 Cholecalciferol (Vitamin D3) [Vitamin D3 (125 MCG = 5,000 IU)] 125 mcg PO DAILY 09/29/21 Furosemide [Lasix] 20 mg PO DAILY 09/29/21 Isosorbide Mononitrate ER [Imdur] 30 mg PO QAM 09/29/21 Spironolactone [Aldactone] 25 mg PO DAILY 09/29/21 allopurinoL [Zyloprim] 100 mg PO BID 09/29/21 traZODone HCL [TraZODone HCl] 50 mg PO HS 09/29/21 Alendronate Sodium 70 mg PO WEEKLY 01/20/23 Ezetimibe [Zetia] 10 mg PO DAILY 01/20/23 Retinavite 1 tab PO BID 01/20/23 lisinopriL [Zestril] 10 mg PO QAM 01/20/23 Controlled Substance Measures - Controlled Substance Measures Is patient prescribed a controlled substance at discharge?: No
== END ==
LOC: PNWHC3 08:51
PROVIDERS: ATTEND Specialist
DX: M48.02 Spinal stenosis, cervical region (principal); Z87.891 Personal history of nicotine dependence; Z88.8 Allergy status to other drugs, medicaments and biological substances; Z88.1 Allergy status to other antibiotic agents; Z88.5 Allergy status to narcotic agent
CPT/HCPCS: 99211

== ENCOUNTER 2024-08-15 06:07 | Day surgery (SDC) | payer MEDICARE, OTHER ==
[2024-08-11 08:37] VITALS: BMI 34.3
[2024-08-15] MEDS ORDERED: LACTATED RINGERS 1,000 ML IV SCH (06:09)
[2024-08-15 06:51] VITALS: RESP 18; TEMP 95.3
[2024-08-15 06:54] LABS: Glucose,Whole Blood 132 mg/dL (70-110)
[2024-08-15] MEDS ORDERED: IOPAMIDOL M300 15ML VIAL ONE (07:45)
[2024-08-15] MEDS ORDERED: ROPIVACAINE 5MG/ML 20ML VIAL ONE (07:45)
[2024-08-15] MEDS ORDERED: DEXAMETHASONE SOD PHOSPHATE 10 MG/ML 1 ML VIAL ONE (07:45)
--- NOTE | 2024-08-15 08:21 | P.PCN ---
Description of Procedure: PROCEDURE 1. Injection of radio contrast material into cervical epidural space, cervical epidurogram, interpretation of cervical epidurogram, Cervical epidural steroid injection under fluoroscopic guidance, C6-7 (fluoroscopy images available in the radiology department ) 2. Cervical epidurogram. PREOPERATIVE DIAGNOSIS: 1- Cervical Degenerative Disc Diseases 2- Cervical radiculopathy., 3-cervical spondylosis with cervical Facet arthropathy without myelopathy.4-cervical spinal stenosis POSTOPERATIVE DIAGNOSIS: : 1- Cervical Degenerative Disc Diseases , 2- Cervical radiculopathy. 3-,cervical spondylosis with cervical Facet arthropathy without myelopathy. 4-cervical spinal stenosis ANESTHESIA: Local anesthetics infiltration. In the OR continuous pulse ox, EKG, blood pressure and verbal communication was maintained. EBL : None PROCEDURE INDICATION: The patient with neck pain and radiculitis unresponsive to conservative treatment consents for procedure. Discussed the procedure, alternatives and possible complications which may include increased pain, infection, bleeding, nerve damage, paralysis all of which could be permanent. Patient understands and all questions were answered. PROCEDURE DESCRIPTION : After getting consent patient was taken to the OR , positioned in prone position and time out was completed. A pillow was placed under the patients chest to increase the cervical interlaminar space. The cervical area was prepped and draped in the usual sterile fashion. Using anterior-posterior fluoroscopy, interlaminar space was identified and the skin over this site was marked and then infiltrated with 1% lidocaine subcutaneously. Subsequently, a 20-gauge 3-1/2-inch Tuohy epidural needle was inserted and advanced toward the epidural space with the loss of resistance technique using a syringe filled with preservative-free normal saline and guided by AP and lateral fluoroscopy. Needle position secondary to altered cervical spine anatomy .Negative CSF, negative blood, negative paresthesia. The correct needle position in the epidural space was verified with the injection of 2 mL of the water soluble contrast dye [id number]-[id number] and observing an excellent epidurogram with the epidural spread of the dye, after repeat negative aspiration 3 mL solution was injected which consists of 1 mL of preservative-free normal saline mixed with 2 mL of 20 mg dexamethasone and a washout of epidurogram was seen. Needle was withdrawn intact, skin was cleansed, and bandages were applied. Disposition: Patient tolerated the procedure well. No complication. Patient was placed in supine position and transferred to the recovery room area in stable condition and there was no evidence of upper or lower extremity motor or sensory deficit after the procedure patient was discharged from recovery room after discharge criteria met and home discharge instructions was given by the staff and patient will follow with the pain clinic in 2-4 weeks
[2024-08-15 08:36] VITALS: BP 115/72; PULSE 77
--- NOTE | 2024-08-15 10:24 | FL ---
Fluoroscopy INDICATION: Pain FINDINGS: Fluoroscopy time: 61.2 seconds. Total dose area product (DAP) in uGy*m?, mGy*cm? (or similar): 02055 Images obtained: 0. IMPRESSION: 1. Documentation of fluoroscopy. [facility], , 08/15/2024 10:22 AM
== END 2024-08-15 08:46 | disposition home or self-care (01) ==
LOC: ORPAIN 06:07
PROVIDERS: ATTEND Pain Medicine Interventional Pain Medicine
DX: M50.10 Cervical disc disorder with radiculopathy, unspecified cervical region (principal); M47.22 Other spondylosis with radiculopathy, cervical region; M48.02 Spinal stenosis, cervical region; Z88.5 Allergy status to narcotic agent; Z88.8 Allergy status to other drugs, medicaments and biological substances
CPT/HCPCS: 62321; J1100; Q9967; J2795

== ENCOUNTER → 2024-08-31 | Outpatient (CLI) | payer MEDICARE ==
[2024-08-31 11:26] VITALS: BP 125/70; PULSE 67; RESP 16
--- NOTE | 2024-08-31 14:20 | P.PAINPG ---
Objective - Vital Signs Vital signs: Intake & Output 08/30/24 08/31/24 08/31/24 18:59 06:59 18:59 Weight 96.162 kg PQRS Measure Charge Sheet Comment: HISTORY OF PRESENT ILLNESS: A 69 yr old female presents today w severe and chronic neck pain since secondary to radiculopathy, spondylosis and facet arthropathy without myelopathy, L shoulder DJD for evaluation s/p C6-C7 #1. Pt states she experienced 80% pain relief x 2 wks s/p procedure. Pt states pain level is provoked at 9-10 /10 in intensity, constant, localized in the L shoulder, sharp in character without shooting pain. Pain is provoked by hyperextension. Pain is alleviated by PT x 6 wks which ended in Jul 2024 (cervical, shoulder), physician guided home stretches daily since May 2024 (cervical, shoulders), medications, heat, manual massage, repositioning and rest . Interventional procedures include C6-C7 #1 Medications include Ibu REVIEW OF ORGAN SYSTEMS: CONSTITUTIONAL: No fevers or chills. No recent weight loss. NEUROLOGICAL: + numbness and tingling along the distal extremities. No seizure disorders or headaches. MUSCULOSKELETAL: + pain PSYCHIATRIC: Denies current depression or suicidal thou ghts. Physical Examinations : Constitutional : Cooperative , not in acute distress . Neurologic : Cranial nerve II to XII intact. No focal neurological deficits. Psychiatric : alert & oriented x 3. Matching mood & appropriate affect. Judgment & insight intact. Musculoskeletal : Cervical Spine Motor strength in the deltoid and biceps: Normal right side. Normal Left side Motor strength biceps and the wrist extensors: Normal right side . Normal left side Motor strength in the triceps muscle: Normal right side. Normal left side Deep tendon reflexes: Normal at the biceps. Normal at Brachioradialis. Normal at triceps Vertebral body tenderness to deep palpation over C6 Cervical facet loading test: positive bilaterally Spurling test: positive L > R C6-C7 Neck distraction test: positive bilaterally Shahab sign: positive bilaterally Lumbar spine Motor strength lower extremities ,thigh and legs 5/5 Right side , 5/5 Left side Deep tendon reflexes : Normal Knee Jerk. Normal Ankle Jerk Vertebral body tenderness over Poole Test positive Lumbar facet Loading Test: positive Right / positive Left Range of motion of the lumbar spine Flexion 30 degrees, extension 10 degrees Straight Leg Raise test: Left/ Right positive at degrees Ardha test: positive right / positive left. Severe tenderness over the Sacroiliac joint on the Right / Left sides Gaenslen test: positive bilaterally Seated flexion test: positive bilaterally. Sacral spine : Severe tenderness over the Sacroiliac joint: right side / left side Range of motion: Flexion of the lumbar spine <60 degrees Range of motion: Extension of the lumbar spine <20 degrees Gaenslen's Test positive Radha test: positive right side / left side Thigh Thrust Test Sacral Thrust Test Imaging: MRI non contrast cervical spine from 06/07/24 reviewed MRI non contrast of the L shoulder form 06/24/24 reviewed Assessment/ Plan : Possible congenital C7-T1 fusion, L C6-C7 foraminal stenosis, L shoulder DJD Recommendation of L intra articular injection #1. Risks, benefits of procedure discussed and patient verbalized understanding. Admits to anti- coagulant use or medical history of diabetes. Protocol for discontinuation/ continuation of medications michelle procedure discussed. All questions answered. I have spent greater than 30 minutes on patient care today. Dr Xiao was available by phone for the evaluation of this patient. The time was used to review the medical records including relevant urine studies and Prescription history (MAPs), review of the available imaging, evaluation and examination of the patient, coordination of care with the medical staff and if applicable referring physicians, as well as creation of the medical record PQRS Narrative: Smoking Status Former smoker Hx Alcohol Use (MH) No Home Medications: Ambulatory Orders Atorvastatin [Lipitor] 80 mg PO HS 06/24/15 Metoprolol Tartrate [Lopressor] 25 mg PO BID 06/24/15 Ascorbic Acid [Vitamin C] 500 mg PO DAILY 09/29/21 Cholecalciferol (Vitamin D3) [Vitamin D3 (125 MCG = 5,000 IU)] 125 mcg PO DAILY 09/29/21 Furosemide [Lasix] 20 mg PO DAILY 09/29/21 Isosorbide Mononitrate ER [Imdur] 30 mg PO QAM 09/29/21 Spironolactone [Aldactone] 25 mg PO DAILY 09/29/21 allopurinoL [Zyloprim] 100 mg PO BID 09/29/21 traZODone HCL [TraZODone HCl] 50 mg PO HS 09/29/21 Ezetimibe [Zetia] 10 mg PO DAILY 01/20/23 Retinavite 1 tab PO BID 01/20/23 lisinopriL [Zestril] 10 mg PO QAM 01/20/23 Semaglutide [Ozempic] 2 mg SQ MO 08/11/24 Controlled Substance Measures - Controlled Substance Measures Is patient prescribed a controlled substance at discharge?: No
== END ==
LOC: PNWHC3 10:52
PROVIDERS: ATTEND Specialist
DX: M48.02 Spinal stenosis, cervical region (principal); M19.012 Primary osteoarthritis, left shoulder; Z87.891 Personal history of nicotine dependence; Z88.1 Allergy status to other antibiotic agents; Z88.5 Allergy status to narcotic agent; Z88.8 Allergy status to other drugs, medicaments and biological substances
CPT/HCPCS: 99211

== ENCOUNTER 2024-09-19 12:13 | Day surgery (SDC) | payer MEDICARE ==
[2024-09-19] MEDS ORDERED: LACTATED RINGERS 1,000 ML IV SCH (13:00)
[2024-09-19 13:17] VITALS: RESP 16; TEMP 97.3
[2024-09-19 13:20] LABS: Glucose,Whole Blood 98 mg/dL (70-110)
[2024-09-19] MEDS ORDERED: methylPREDNISolone ACETATE 80 MG/ML 1 ML VIAL ONE (14:18)
[2024-09-19] MEDS ORDERED: ROPIVACAINE 5MG/ML 20ML VIAL ONE (14:18)
--- NOTE | 2024-09-19 14:28 | P.PCN ---
Description of Procedure: Preprocedure diagnosis. Shoulder joint osteoarthritis. Postprocedure diagnosis. As above. Procedure done. Left shoulder glenohumeral intra-articular joint injection with local anesthetics and steroid . Anesthesia. 1% lidocaine subcutaneously 3 cc. Blood loss. None. Indication. Discussed with the patient the procedure, alternatives, and possible complications which may include infection, bleeding, nerve damage, aggravation of pain. Patient understands and all questions were answered. Procedure note. Getting consent patient in OR in sitting position. Ipsilateral hand was put on anterolateral shoulder. Scapular spine was identified. Acromion was identified. After injecting 3 cc of 1% lidocaine subcutaneously, 22 F spinal needle attached to a syringe was introduced from a point located 1 cm below and 1 cm medial from the posterior angle of the acromion directed towards the ipsilateral coracoid process . When the needle was in the intra- articular space, after negative aspiration 8 cc solution was injected which consists of 7 cc of 0.5 ropivacaine mixed with 1 cc of 80 mg Depo-Medrol. Needle was taken out and Band-Aid was placed. Disposition. And was transferred to postsurgical area. No complication. Discharged home in stable condition.
[2024-09-19 14:44] VITALS: BP 128/71; PULSE 74
== END 2024-09-19 14:48 | disposition home or self-care (01) ==
LOC: ORPAIN 12:13
PROVIDERS: ATTEND Pain Medicine Interventional Pain Medicine
DX: M75.52 Bursitis of left shoulder (principal); Z88.5 Allergy status to narcotic agent; Z88.8 Allergy status to other drugs, medicaments and biological substances; Z88.1 Allergy status to other antibiotic agents
CPT/HCPCS: 20610; J2795; J1010

== ENCOUNTER 2024-10-02 00:20 | Emergency (ER) | payer MEDICARE, OTHER ==
[2024-10-02 00:29] VITALS: RESP 18
--- NOTE | 2024-10-02 00:42 | ED ---
Neck Injury/Pain HPI - General Chief Complaint: Neck Pain/Injury Stated Complaint: Neck and Shoulder Pain Time Seen by Provider: 10/02/24 00:31 Source: patient, RN notes reviewed Mode of arrival: wheelchair Limitations: no limitations - History of Present Illness Initial Comments: This is a 69-year-old female with history of left chronic shoulder pain who is presenting to the emergency department for chief complaint of worsening left shoulder/neck pain. Pain is exacerbated on range of motion and states that she is having a difficult time turning her neck to the left and worse with palpation. States that she has recently began to follow with pain management where she received a injection of her left shoulder approximately 2 weeks ago. States that over the last few weeks and specifically today she has had worsening pain of the left shoulder with radiation up into her neck. She denies chest pain, shortness of breath, heart palpitations, associated diaphoresis, nausea. Patient has been taking Tylenol and baclofen with minimal relief. She denies paresthesias. follows with Dr. Alfaro, orthopedic, and recent MRI was completed. - Related Data Home Medications Medication Instructions Recorded Confirmed Atorvastatin [Lipitor] 80 mg PO HS 06/24/15 09/18/24 Metoprolol Tartrate [Lopressor] 25 mg PO BID 06/24/15 09/18/24 Ascorbic Acid [Vitamin C] 500 mg PO DAILY 09/29/21 09/18/24 Cholecalciferol (Vitamin D3) 125 mcg PO DAILY 09/29/21 09/18/24 [Vitamin D3 (125 MCG = 5,000 IU)] Furosemide [Lasix] 20 mg PO DAILY 09/29/21 09/18/24 Isosorbide Mononitrate ER [Imdur] 30 mg PO QAM 09/29/21 09/18/24 Spironolactone [Aldactone] 25 mg PO DAILY 09/29/21 09/18/24 allopurinoL [Zyloprim] 100 mg PO BID 09/29/21 09/18/24 traZODone HCL [TraZODone HCl] 50 mg PO HS 09/29/21 09/18/24 Ezetimibe [Zetia] 10 mg PO DAILY 01/20/23 09/18/24 Retinavite 1 tab PO BID 01/20/23 09/18/24 lisinopriL [Zestril] 10 mg PO QAM 01/20/23 09/18/24 Temazepam [Restoril] 15 mg PO HS PRN 09/18/24 09/18/24 Tirzepatide [Mounjaro] 2.5 mg SQ TAVERAS 09/18/24 09/18/24 glipiZIDE [Glipizide] 5 mg PO DIRECTED PRN 09/18/24 09/18/24 Allergies Allergy/AdvReac Type Severity Reaction Status Date / Time diazepam [From Valium] Allergy Hallucinati Verified 10/02/24 00:26 ons erythromycin base Allergy Nausea Verified 10/02/24 00:26 hydrocodone bitartrate Allergy Hallucinati Verified 10/02/24 00:26 [From Vicodin] ons zolpidem tartrate Allergy Hallucinati Verified 10/02/24 00:26 [From Ambien] ons Review of Systems ROS Statement: Those systems with pertinent positive or pertinent negative responses have been documented in the HPI. ROS Other: All systems not noted in ROS Statement are negative. Past Medical History Past Medical History: Chest Pain / Angina, COPD, Diabetes Mellitus, Hyperlipidemia, Hypertension, Myocardial Infarction (AL), Musculoskeletal Disorder, Osteoarthritis (OA), Thyroid Disorder Additional Past Medical History / Comment(s): States no current medications for Diabetes but will likely be started on Metformin soon. Hx bilateral ankle fractures, had casts, healed now. Hx AL X2, OSTEOPOROSIS, HX THYROID STORM MANY YEARS AGO, WAS TAKING MEDS, STOPPED THE MEDS ON HER OWN 12 YERAS AGO AND NO PROBLEM SINCE. Hx right rib fractures X13. Last Myocardial Infarction Date:: 2014 History of Any Multi-Drug Resistant Organisms: None Reported Past Surgical History: Back Surgery, Heart Catheterization, Hysterectomy, Ortho pedic Surgery Additional Past Surgical History / Comment(s): RECTOCELE/CYSTOCELE REPAIR, back surgery X3 FOR HERNIATED DISCS, LEFT KNEE ARTHROSCOPY. COLONOSCOPY, Past Anesthesia/Blood Transfusion Reactions: Motion Sickness, Postoperative Nausea & Vomiting (PONV) Additional Past Anesthesia/Blood Transfusion Reaction / Comment(s): Severe PONV. Vertigo. Past Psychological History: No Psychological Hx Reported Smoking Status: Former smoker Past Alcohol Use History: None Reported Past Drug Use History: None Reported - Past Family History Father Family Medical History: Myocardial Infarction (AL) Additional Family Medical History / Comment(s): PACEMAKER. from MRSA. Mother Family Medical History: Congestive Heart Failure (CHF), Myocardial Infarction (AL) Additional Family Medical History / Comment(s): from MRSA. Sister(s) Family Medical History: Cancer, Coronary Artery Disease (CAD), Diabetes Mellitus Additional Family Medical History / Comment(s): Skin cancer. HAD CABG AT AGE 60. Brother(s) Family Medical History: Cancer, Coronary Artery Disease (CAD), Myocardial Infarction (AL) Additional Family Medical History / Comment(s): 3 brothers had cancer - one with pancreatic and bladder cancer and another brother had kidney cancer, 1 BROTHER HAD 3 AL'S /PACEMKAER AT AGE 29, 1 BROTHER HAD CABG AT AGE 66 AND 2 BROTHERS IN THEIR EARLY 50'S FROM AL'S. General Exam Limitations: no limitations ENT exam: Present: normal exam, mucous membranes moist Neck exam: Present: normal inspection, tenderness (left neck on palpation and with ROM). Absent: meningismus, full ROM, lymphadenopathy Respiratory exam: Present: normal lung sounds bilaterally. Absent: respiratory distress, wheezes, rales, rhonchi, stridor Cardiovascular Exam: Present: regular rate, normal rhythm, normal heart sounds. Absent: systolic murmur, diastolic murmur, rubs, gallop, clicks Left Shoulder Exam: Present: normal inspection, tenderness (palpation over the shoulder and with ROM) Upper Arm exam: Present: normal inspection, full ROM. Absent: tenderness Elbow exam: Absent: tenderness Forearm Wrist exam: Absent: tenderness Back exam: Present: normal inspection Neurological exam: Present: alert, oriented X3, CN II-XII intact Course Vital Signs 10/02/24 10/02/24 10/02/24 00:25 01:01 02:10 Temperature 97.4 F L 97.6 F 97.8 F Pulse Rate 66 64 60 Respiratory 18 18 18 Rate Blood Pressure 145/59 132/62 137/71 O2 Sat by Pulse 95 97 97 Oximetry Medical Decision Making - Medical Decision Making Was pt. sent in by a medical professional or institution (, PA, CORPORATE FINANCIAL ANALYST, urgent care, hospital, or correction...) When possible be specific @ -No Did you speak to anyone other than the patient for history (EMS, parent, family, police, friend...)? What history was obtained from this source @ -No Did you review nursing and triage notes (agree or disagree)? Why? @ -I reviewed and agree with nursing and triage notes Were old charts reviewed (outside hosp., previous admission, EMS record, old EKG, old radiological studies, urgent care reports/EKG's, correction records)? Report findings @ -No old charts were reviewed Differential Diagnosis (chest pain, altered mental status, abdominal pain women, abdominal pain men, vaginal bleeding, weakness, fever, dyspnea, syncope, headache, dizziness, GI bleed, back pain, seizure, CVA, palpatations, mental health, musculoskeletal)? @ -Differential Musculoskeletal Muscular strain, contusion, ligament sprain, fracture, arthritis, septic arthritis, bursitis, cellulitis, muscle spasm, nerve compression, DVT, arterial occlusion, herpes zoster, electrolyte abnormality, tumor.... This is not meant to be in all inclusive list EKG interpreted by me (3pts min.). @ -none X-rays interpreted by me (1pt min.). @ -None done CT interpreted by me (1pt min.). @ -None done U/S interpreted by me (1pt. min.). @ -None done What testing was considered but not performed or refused? (CT, X-rays, U/S, labs)? Why? @ -X-ray imaging of the neck and shoulders considered but deferred at this time. Patient had recent MRI and has been closely following with academic program specialist and pain management outpatient with no new symptoms. This is a chronic condition for the patient. What meds were considered but not given or refused? Why? @ -None Did you discuss the management of the patient with other professionals (professionals i.e. , PA, CORPORATE FINANCIAL ANALYST, lab, RT, psych nurse, licensed clinical social worker, tree pruner, teacher, neighborhood conservation officer, child support case officer)? Give summary @ -No Was smoking cessation discussed for >3mins.? @ -No Was critical care preformed (if so, how long)? @ -No Were there social determinants of health that impacted care today? How? (Homelessness, low income, unemployed, alcoholism, drug addiction, transportation, low edu. Level, literacy, decrease access to med. care, senior living, rehab)? @ -No Was there de-escalation of care discussed even if they declined (Discuss DNR or withdrawal of care, Hospice)? DNR status @ -No What co-morbidities impacted this encounter? (DM, HTN, Smoking, COPD, CAD, Cancer, CVA, ARF, Chemo, Hep., AIDS, mental health diagnosis, sleep apnea, morbid obesity)? @ -None Was patient admitted / discharged? Hospital course, mention meds given and route, prescriptions, significant lab abnormalities, going to OR and other pertinent info. @ -Discharge. 69-year-old female presenting with chronic left shoulder and neck pain. There are no neurovascular deficits of the left upper extremity. There is minimal, concern for ACS. Patient states that this pain is chronic and there have been no changes to her pain however she is unable to maintain her pain at home. Patient is provided with medications on reevaluation states that she is feeling better. She is provided with starter pack of Tylenol 3 instructed to follow-up as scheduled with pain management for further and continued care. Discussed with Dr. Chawla Undiagnosed new problem with uncertain prognosis? @ -No Drug Therapy requiring intensive monitoring for toxicity (Heparin, Nitro, Insulin, Cardizem)? @ -No Were any procedures done? @ -No Diagnosis/symptom? @ -neck pain, shoulder pain Acute, or Chronic, or Acute on Chronic? @ -chronic Uncomplicated (without systemic symptoms) or Complicated (systemic symptoms)? @ -uncomplicated Side effects of treatment? @ -No Exacerbation, Progression, or Severe Exacerbation? @ -No Poses a threat to life or bodily function? How? (Chest pain, USA, AL, pneumonia, PE, COPD, DKA, ARF, appy, cholecystitis, CVA, Diverticulitis, Homicidal, Suicidal, threat to staff... and all critical care pts) @ -No Disposition Clinical Impression: Chronic neck pain Disposition: HOME SELF-CARE Condition: Good Instructions (If sedation given, give patient instructions): Chronic Neck Pain (DC) Additional Instructions: Please return to the Emergency Department if symptoms worsen or any other concerns. Is patient prescribed a controlled substance at d/c from ED?: No Referrals: Kana Renteria MD [Primary Care Provider] - 1-2 days Time of Disposition: 01:44
[2024-10-02] MEDS: MORPHINE SULFATE 4 MG/ML SYRINGE IM STA (01:07)
[2024-10-02] MEDS: methylPREDNISolone SOD SUCCI 125 MG/2 ML VIAL IM ONE (01:11)
[2024-10-02] MEDS: HYDROmorphone 0.5 MG/0.5 ML SYRINGE IM STA (02:01)
[2024-10-02] MEDS: ACET/COD 300 MG/30 MG STARTER PACK 6 TAB BTL PO STA (02:08)
[2024-10-02 02:14] VITALS: BP 137/71; PULSE 60; TEMP 97.8
== END 2024-10-02 02:20 | disposition home or self-care (01) ==
LOC: EC 00:20
DX: G89.29 Other chronic pain (principal); M54.2 Cervicalgia; M25.512 Pain in left shoulder; Z88.1 Allergy status to other antibiotic agents; Z88.5 Allergy status to narcotic agent; Z88.8 Allergy status to other drugs, medicaments and biological substances; Z87.891 Personal history of nicotine dependence
CPT/HCPCS: 99283; 96372 ×3; J2270; J1171; J2919

== ENCOUNTER → 2024-10-16 | Outpatient (CLI) | payer MEDICARE, OTHER ==
[2024-10-16 12:46] VITALS: BP 111/65; PULSE 67; RESP 16; TEMP 97
--- NOTE | 2024-10-16 17:19 | P.PAINPG ---
PQRS Measure Charge Sheet Comment: HISTORY OF PRESENT ILLNESS: A 69 yr old female presents today w severe and chronic neck pain since secondary to radiculopathy, spondylosis and facet arthropathy without myelopathy, L shoulder DJD for evaluation s/p L GH/ Subacromial Bursa #1. Pt states she experienced 70% pain relief x 3-4 wks s/p procedure. Pt states pain level is provoked at 8 /10 in intensity, constant, localized in the L shoulder, sharp in character without shooting pain. Pain is provoked by hyperextension of LUE. Pain is alleviated by PT x 6 wks which ended in Jul 2024 (cervical, shoulder), physician guided home stretches daily since May 2024 (cervical, shoulders), medications, heat, manual massage, repositioning and rest . Interventional procedures include C6-C7 #1, L GH/ Subacromial Bursa x1 Medications include Ibu REVIEW OF ORGAN SYSTEMS: CONSTITUTIONAL: No fevers or chills. No recent weight loss. NEUROLOGICAL: + numbness and tingling along the distal extremities. No seizure disorders or headaches. MUSCULOSKELETAL: + pain PSYCHIATRIC: Denies current depression or suicidal thoughts. Physical Examinations : Constitutional : Cooperative , not in acute distress . Neurologic : Cranial nerve II to XII intact. No focal neurological deficits. Psychiatric : alert & oriented x 3. Matching mood & appropriate affect. Judgment & insight intact. Musculoskeletal : Cervical Spine Motor strength in the deltoid and biceps: Normal right side. Normal Left side Motor strength biceps and the wrist extensors: Normal right side . Normal left side Motor strength in the triceps muscle: Normal right side. Normal left side Deep tendon reflexes: Normal at the biceps. Normal at Brachioradialis. Normal at triceps Vertebral body tenderness to deep palpation over C6 Cervical facet loading test: positive bilaterally Spurling test: positive L > R C6-C7 Neck distraction test: positive bilaterally Shahab sign: positive bilaterally Thoracic spine Taut bands w twitch response over L C6- T4 Lumbar spine Motor strength lower extremities ,thigh and legs 5/5 Right side , 5/5 Left side Deep tendon reflexes : Normal Knee Jerk. Normal Ankle Jerk Vertebral body tenderness over Poole Test positive Lumbar facet Loading Test: positive Right / positive Left Range of motion of the lumbar spine Flexion 30 degrees, extension 10 degrees Straight Leg Raise test: Left/ Right p ositive at degrees Radha test: positive right / positive left. Severe tenderness over the Sacroiliac joint on the Right / Left sides Gaenslen test: positive bilaterally Seated flexion test: positive bilaterally. Sacral spine : Severe tenderness over the Sacroiliac joint: right side / left side Range of motion: Flexion of the lumbar spine <60 degrees Range of motion: Extension of the lumbar spine <20 degrees Gaenslen's Test positive Radha test: positive right side / left side Thigh Thrust Test Sacral Thrust Test Imaging: MRI non contrast cervical spine from 06/07/24 reviewed MRI non contrast of the L shoulder form 06/24/24 reviewed Assessment/ Plan : Possible congenital C7-T1 fusion, L C6-C7 foraminal stenosis, L shoulder DJD Recommendation of L TPIs C6-T4 #1. Risks, benefits of procedure discussed and patient verbalized understanding. All questions answered. I have spent greater than 30 minutes on patient care today. Dr Xiao was available by phone for the evaluation of this patient. The time was used to review the medical records including relevant urine studies and Prescription history (MAPs), review of the available imaging, evaluation and examination of the patient, coordination of care with the medical staff and if applicable referring physicians, as well as creation of the medical record PQRS Narrative: Smoking Status Former smoker Hx Alcohol Use (MH) No Home Medications: Ambulatory Orders Atorvastatin [Lipitor] 80 mg PO HS 06/24/15 Metoprolol Tartrate [Lopressor] 25 mg PO BID 06/24/15 Ascorbic Acid [Vitamin C] 500 mg PO DAILY 09/29/21 Cholecalciferol (Vitamin D3) [Vitamin D3 (125 MCG = 5,000 IU)] 125 mcg PO DAILY 09/29/21 Furosemide [Lasix] 20 mg PO DAILY 09/29/21 Isosorbide Mononitrate ER [Imdur] 30 mg PO QAM 09/29/21 Spironolactone [Aldactone] 25 mg PO DAILY 09/29/21 allopurinoL [Zyloprim] 100 mg PO BID 09/29/21 traZODone HCL [TraZODone HCl] 50 mg PO HS 09/29/21 Ezetimibe [Zetia] 10 mg PO DAILY 01/20/23 Retinavite 1 tab PO BID 01/20/23 lisinopriL [Zestril] 10 mg PO QAM 01/20/23 Temazepam [Restoril] 15 mg PO HS PRN 09/18/24 Tirzepatide [Mounjaro] 2.5 mg SQ TAVERAS 09/18/24 glipiZIDE [Glipizide] 5 mg PO DIRECTED PRN 09/18/24 Controlled Substance Measures - Controlled Substance Measures Is patient prescribed a controlled substance at discharge?: No
== END ==
LOC: PNWHC3 10:45
PROVIDERS: ATTEND Anesthesiology
DX: M54.2 Cervicalgia (principal); G89.29 Other chronic pain; Z88.5 Allergy status to narcotic agent; Z88.1 Allergy status to other antibiotic agents; Z88.8 Allergy status to other drugs, medicaments and biological substances; Z87.891 Personal history of nicotine dependence
CPT/HCPCS: 99211

== ENCOUNTER → 2024-10-27 | Day surgery (SDC) | payer MEDICARE, OTHER ==
[~2024-10-27] MED LIST changes: +ROPIVACAINE 5MG/ML 20ML VIAL ONE; +methylPREDNISolone ACETATE 40 MG/ML 1 ML VIAL ONE
[2024-10-27 08:18] VITALS: TEMP 97.9
--- NOTE | 2024-10-27 08:54 | P.PCN ---
Date of Procedure: 10/27/24 Procedure(s) Performed: Procedure= trigger point injections Left side cervical and thoracic paraspinal muscles C6 to T4 (total of 3 trigger point injected ) Preoperative diagnosis= 1-myofascial pain syndrome thoracic and cervical area. Postoperative diagnosis=Same as preop Diagnosis . Complication = none Condition= stable Anesthesia= none Indication for the procedure= patient complaining of low back pain , examination was positive for multiple trigger point in the left side cervical and thoracic area and patient diagnosed with myofascial pain syndrome and is here to have trigger point injections Description of the procedure= procedure risk and benefits discussed with the patient, including but not limited, risk of infection and bleeding, and ALLERGIC reaction to the medication and not complete pain relief and patient agreed with the preceding patient taken to the operating room, placed in sitting position or standard monitors applied to the patient then after induction of anesthesia back prepped with chlorhexidine 3 times , then under sterile technique each of the trigger point that was marked in the preop holding area 3 on the left side cervical and thoracic paraspinal muscles, each one of them injected with the 3 mL of the mixture of ropivacaine 0.5% 9 ML mixed with 40 mg of Depo-Medrol and 3 mL of the mixture injected at each trigger point after negative aspiration, using 25-gauge needle, injection done after negative aspiration under was no paresthesia during the injection patient tolerated the procedure well without any complications and he will follow up in the pain clinic in a few weeks
[2024-10-27 08:57] VITALS: RESP 16
[2024-10-27 09:07] VITALS: BP 118/58; PULSE 74
== END ==
LOC: ORPAIN 07:07
PROVIDERS: ATTEND Specialist
DX: M54.2 Cervicalgia (principal); M54.6 Pain in thoracic spine; Z88.5 Allergy status to narcotic agent; Z88.1 Allergy status to other antibiotic agents
CPT/HCPCS: 20553; J2795; J1010

== ENCOUNTER → 2025-01-24 | Outpatient (CLI) | payer MEDICARE, OTHER ==
[2025-01-24 09:30] VITALS: BP 116/73; PULSE 71; RESP 19; TEMP 97.9
--- NOTE | 2025-01-24 16:29 | P.PAINPG ---
PQRS Measure Charge Sheet Comment: HISTORY OF PRESENT ILLNESS: A 69 yr old female presents today w severe and chronic neck pain since secondary to radiculopathy, spondylosis and facet arthropathy without myelopathy, L shoulder DJD for evaluation. Pt states pain level is provoked at 8 /10 in intensity, constant, localized in the L shoulder, sharp in character without shooting pain. Pain is provoked by hyperextension of LUE. Pain is alleviated by PT x 6 wks which ended in Jul 2024 (cervical, shoulder), physician guided home stretches daily since May 2024 (cervical, shoulders), medications, heat, manual massage, repositioning and rest . Interventional procedures include C6-C7 #1, L GH/ Subacromial Bursa x1, L TPIs C6-T4 x1 Medications include Ibu REVIEW OF ORGAN SYSTEMS: CONSTITUTIONAL: No fevers or chills. No recent weight loss. NEUROLOGICAL: + numbness and tingling along the distal extremities. No seizure disorders or headaches. MUSCULOSKELETAL: + pain PSYCHIATRIC: Denies current depression or suicidal thoughts. Physical Examinations : Constitutional : Cooperative , not in acute distress . Neurologic : Cranial nerve II to XII intact. No focal neurological deficits. Psychiatric : alert & oriented x 3. Matching mood & appropriate affect. Judgment & insight intact. Musculoskeletal : Cervical Spine + L GL/ AC Jointline TTP Motor strength in the deltoid and biceps: Normal right side. Normal Left side Motor strength biceps and the wrist extensors: Normal right side . Normal left side Motor strength in the triceps muscle: Normal right side. Normal left side Deep tendon reflexes: Normal at the biceps. Normal at Brachioradialis. Normal at triceps Vertebral body tenderness to deep palpation over C6 Cervical facet loading test: positive bilaterally Spurling test: positive L > R C6-C7 Neck distraction test: positive bilaterally Shahab sign: positive bilaterally Thoracic spine Taut bands w twitch response over L C6- T4 Lumbar spine Motor strength lower extremities ,thigh and legs 5/5 Right side , 5/5 Left side Deep tendon reflexes : Normal Knee Jerk. Normal Ankle Jerk Vertebral body tenderness over Poole Test positive Lumbar facet Loading Test: positive Right / positive Left Range of motion of the lumbar spine Flexion 30 degrees, extension 10 degrees Straight Leg Raise test: Left/ Right positive at degrees Radha test: positive right / positive left. Severe tenderness over the Sacroiliac joint on the Right / Left sides Gaenslen test: positive bilaterally Seated flexion test: positive bilaterally. Sacral spine : Severe tenderness over the Sacroiliac joint: right side / left side Range of motion: Flexion of the lumbar spine <60 degrees Range of motion: Extension of the lumbar spine <20 degrees Gaenslen's Test positive Radha test: positive right side / left side Thigh Thrust Test Sacral Thrust Test Imaging: MRI non contrast cervical spine from 06/07/24 reviewed MRI non contrast of the L shoulder form 06/24/24 reviewed Assessment/ Plan : Possible congenital C7-T1 fusion, L C6-C7 foraminal stenosis, L shoulder DJD Recommendation of L GH/ Subacromial Bursa injection #1. Risks, benefits of procedure discussed and patient verbalized understanding. All questions answered. I have spent greater than 30 minutes on patient care today. Dr Xiao was available by phone for the evaluation of this patient. The time was used to review the medical records including relevant urine studies and Prescription history (MAPs), review of the available imaging, evaluation and examination of the patient, coordination of care with the medical staff and if applicable referring physicians, as well as creation of the medical record PQRS Narrative: Smoking Status Former smoker Hx Alcohol Use (MH) No Home Medications: Ambulatory Orders Atorvastatin [Lipitor] 80 mg PO HS 06/24/15 Metoprolol Tartrate [Lopressor] 25 mg PO BID 06/24/15 Cholecalciferol (Vitamin D3) [Vitamin D3 (125 MCG = 5,000 IU)] 125 mcg PO DAILY 09/29/21 Furosemide [Lasix] 20 mg PO DAILY 09/29/21 Isosorbide Mononitrate ER [Imdur] 30 mg PO QAM 09/29/21 Spironolactone [Aldactone] 25 mg PO DAILY 09/29/21 allopurinoL [Zyloprim] 100 mg PO BID 09/29/21 traZODone HCL [TraZODone HCl] 50 mg PO HS 09/29/21 Ezetimibe [Zetia] 10 mg PO DAILY 01/20/23 Retinavite 1 tab PO BID 01/20/23 lisinopriL [Zestril] 10 mg PO QAM 01/20/23 Temazepam [Restoril] 15 mg PO HS PRN 09/18/24 Tirzepatide [Mounjaro] 7.5 mg SQ TAVERAS 09/18/24 glipiZIDE [Glipizide] 5 mg PO DIRECTED PRN 09/18/24 Vitamin K2 [Vitamin K-2] 100 mcg PO DAILY 10/24/24 Controlled Substance Measures - Controlled Substance Measures Is patient prescribed a controlled substance at discharge?: No
== END ==
LOC: PNWHC3 08:44
PROVIDERS: ATTEND Specialist
DX: M47.812 Spondylosis without myelopathy or radiculopathy, cervical region (principal); G89.29 Other chronic pain; Z87.891 Personal history of nicotine dependence; Z88.5 Allergy status to narcotic agent; Z88.1 Allergy status to other antibiotic agents; Z88.8 Allergy status to other drugs, medicaments and biological substances
CPT/HCPCS: 99211

== ENCOUNTER 2025-02-08 07:19 | Day surgery (SDC) | payer MEDICARE, OTHER ==
[2025-02-06 12:26] VITALS: BMI 36.3
[~2025-02-08 07:19] MED LIST changes: -ROPIVACAINE 5MG/ML 20ML VIAL ONE; -methylPREDNISolone ACETATE 40 MG/ML 1 ML VIAL ONE
[2025-02-08 07:42] VITALS: TEMP 96.9
[2025-02-08 07:45] LABS: Glucose,Whole Blood 89 mg/dL (70-110)
[2025-02-08] MEDS ORDERED: ROPIVACAINE 5 MG/ML 30 ML VIAL ONE (08:11)
[2025-02-08] MEDS ORDERED: methylPREDNISolone ACETATE 80 MG/ML 1 ML VIAL ONE (08:11)
--- NOTE | 2025-02-08 08:27 | P.PCN ---
Description of Procedure: Preprocedure diagnosis. Shoulder joint osteoarthritis. Subacromial bursitis. Postprocedure diagnosis. As above. Procedure done. Left shoulder glenohumeral intra-articular joint and subacromial bursa injection with local anesthetics and steroid under ultrasound guidance. Anesthesia. 1% lidocaine subcutaneously 3 cc. Blood loss. None. Indication. Discussed with the patient the procedure, alternatives, and possible complications which may include infection, bleeding, nerve damage, aggravation of pain. Patient understands and all questions were answered. Procedure note. Getting consent patient in OR in sitting position. Ipsilateral hand was put on anterolateral shoulder. Scapular spine was identified. Acromion was identified. Ultrasound probe was placed below the scapular spine parallel and just below acromion. Infraspinatus muscle, head of the humerus, glenoid was identified. After injecting 3 cc of 1% lidocaine subcutaneously, a 22-gauge spinal needle attached to a syringe was introduced from lateral to medial and in plane technique. When the needle was in the intra-articular space, after negative aspiration 8 cc solution was injected which consists of 7 cc of 0.5 ropivacaine mixed with 1 cc of 80 mg Depo-Medrol. Needle was taken out and Band-Aid was placed. Disposition. And was transferred to postsurgical area. No complication. Discharged home in stable condition.
[2025-02-08 08:35] VITALS: RESP 20
[2025-02-08 08:47] VITALS: BP 130/74; PULSE 67
== END 2025-02-08 08:51 | disposition home or self-care (01) ==
LOC: ORPAIN 07:19
PROVIDERS: ATTEND Pain Medicine Interventional Pain Medicine
DX: M19.012 Primary osteoarthritis, left shoulder (principal); M75.52 Bursitis of left shoulder
CPT/HCPCS: 20610; J2795; J1010

== ENCOUNTER → 2025-02-08 | Outpatient (CLI) | payer MEDICARE, OTHER ==
[2025-02-08 15:45] LABS: ALT 25 U/L (8-44); AST 25 U/L (13-35); Chol/HDL Ratio 3.08 Ratio; LDL Cholesterol,Calculated 56.9 mg/dL (0.0-131.0)
== END | disposition home or self-care (01) ==
LOC: LABWHC1 09:46
PROVIDERS: ATTEND Internal Medicine Cardiovascular Disease
DX: E78.2 Mixed hyperlipidemia (principal)
CPT/HCPCS: 36415; 80061; 84450; 84460